=== PATIENT | male | born 1960 | race Caucasian/White ===

== ENCOUNTER → 2017-03-07 | Outpatient (CLI) | payer BC ==
[~2017-03-07] MED LIST: ANDG TOP; GLC/500 PO; GLIP-197 PO; LEVO50TA6 PO
--- NOTE | 2017-03-07 15:08 | DIAGNOSTIC IMAGING REPORT ---
RIGHT AXILLARY ULTRASOUND CLINICAL HISTORY: Right axillary lymphadenopathy. COMPARISON STUDY: Right axillary ultrasounds November 03, 2014 and June 25, 2016. FINDINGS: A few prominent suspected right axillary lymph nodes are unchanged in its earlier exams. The larger node measures 2.7 x 0.8 x 1.5 cm. No change since prior exam is noted. IMPRESSION: No significant change in a few prominent suspected right axillary lymph nodes since earlier studies. Electronically signed by: Camedn Garay M.D. 03/07/2017 3:07 PM Dictated Date/Time: 03/07/2017 3:04 PM
== END | disposition home or self-care (01) ==
LOC: C.ULTR 14:15
PROVIDERS: ATTEND Family Medicine
DX: R59.1 Generalized enlarged lymph nodes (principal)

== ENCOUNTER → 2017-03-18 | Outpatient (CLI) | payer BC ==
--- NOTE | 2017-03-18 20:14 | DIAGNOSTIC IMAGING REPORT ---
CHEST 2 VIEWS ROUTINE CLINICAL HISTORY: Cough. COMPARISON STUDY: Chest radiograph March 02, 2015. FINDINGS: Moderate elevation of the left hemidiaphragm has slightly increased since prior exam. Linear bibasilar opacities suggest atelectasis. There is no consolidation to suggest pneumonia. There is no pneumothorax or pleural effusion. Cardiac size is at upper limits of normal. IMPRESSION: 1. No acute cardiopulmonary findings. 2. Slight increase in moderate elevation of the left hemidiaphragm since prior exam. . Electronically signed by: Camden Garay M.D. 03/18/2017 8:13 PM Dictated Date/Time: 03/18/2017 8:11 PM
== END | disposition home or self-care (01) ==
LOC: C.RAD 19:18
PROVIDERS: ATTEND Family Medicine
DX: R05 Cough (principal)

== ENCOUNTER → 2017-04-17 | Outpatient (CLI) | payer BC ==
[~2017-04-17] MED LIST changes: -ANDG TOP; -GLC/500 PO; -GLIP-197 PO; -LEVO50TA6 PO; +OPTIRAY 320 IV PRN
--- NOTE | 2017-04-17 08:07 | DIAGNOSTIC IMAGING REPORT ---
CT SCAN OF THE CHEST WITH IV CONTRAST CLINICAL HISTORY: Right axillary lymphadenopathy. COMPARISON STUDY: Chest x-ray dated 03/18/2017. Ultrasound of the right axilla dated 03/07/2017. TECHNIQUE: Following the IV administration of 119 cc of Optiray 320, CT scan of the thorax was performed from the thoracic inlet to the upper abdomen. Images are reviewed in the axial, sagittal, and coronal planes. IV contrast was administered without complication. CT DOSE: 505.00 mGycm FINDINGS: Thyroid: Imaged portions of the thyroid gland are normal in size and attenuation. Thoracic aorta: The thoracic aorta is normal in caliber and demonstrates 4-vessel variant arch anatomy. An aberrant right subclavian artery arises as the fourth branch and courses posterior to the esophagus. No dissection is seen. Pulmonary vasculature: The pulmonary trunk is normal in caliber. There are no filling defects identified in the central pulmonary vessels to indicate pulmonary embolus. Note that this examination was not protocoled for evaluation of the pulmonary arteries. Heart: The heart is normal in size and configuration, and without pericardial effusion. There are coronary artery calcifications. Lungs and pleural spaces: There is chronic elevation of left hemidiaphragm with left basilar atelectasis. No airspace consolidation is seen typical for pneumonia and there is no pleural effusion. Trachea and central airways are clear. Mediastinum: There is no mediastinal lymphadenopathy. Coco: Clear. Axillae: There is no axillary lymphadenopathy. There are small right axillary lymph nodes which are almost completely fatty replaced. Upper abdomen: Partially visualized upper abdominal viscera is within normal limits. Skeletal structures: No lytic or blastic bony lesions are seen. 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 IMPRESSION: 1. There is no airspace consolidation or pleural effusion. 2. No axillary lymphadenopathy is identified. There are small right axillary lymph nodes which are almost completely fatty replaced. These are of doubtful significance. 3. Chronic elevation of left hemidiaphragm is similar to previous. 4. There is no mediastinal or hilar adenopathy. 5. An aberrant right subclavian artery is incidentally noted. Electronically signed by: Koby Canela M.D. 04/17/2017 8:06 AM Dictated Date/Time: 04/17/2017 8:01 AM
== END | disposition home or self-care (01) ==
LOC: C.CTS 07:14
PROVIDERS: ATTEND Surgery
DX: R59.1 Generalized enlarged lymph nodes (principal); Q27.8 Other specified congenital malformations of peripheral vascular system

== ENCOUNTER → 2017-08-27 | Day surgery (SDC) | payer BC ==
[~2017-08-27] VITALS: Ht 167.6 cm; Wt 67.2 kg
[~2017-08-27] MED LIST changes: +ANDG TOP; +COSYNTROPIN INJ 1 MCG in SYRINGE 0 ML IV SCH; +GLC/500 PO; +GLIP-197 PO; +LEVO50TA6 PO; -OPTIRAY 320 IV PRN
[2017-08-27 07:49] VITALS: BP 150/95; PULSE 62; TEMP 36.3; O2SAT 98; Ht 167.6 cm; Wt 67.2 kg
[2017-08-27 08:12] VITALS: BP 143/86; PULSE 57; O2SAT 98
[2017-08-27 08:48] VITALS: BP 130/76; PULSE 56; TEMP 36.6; O2SAT 98
[2017-08-27 09:18] VITALS: BP 126/86; PULSE 58; TEMP 36.5; O2SAT 97
== END | disposition home or self-care (01) ==
LOC: C.MTU 07:29
PROVIDERS: ATTEND Internal Medicine Endocrinology, Diabetes & Metabolism
DX: D35.2 Benign neoplasm of pituitary gland (principal)

== ENCOUNTER → 2017-12-12 | Outpatient (CLI) | payer OTHER ==
[~2017-12-12] MED LIST changes: -COSYNTROPIN INJ 1 MCG in SYRINGE 0 ML IV SCH
[2017-12-12 13:19] LABS: HEMATOCRIT 46.8 % (42-52); HEMOGLOBIN 15.7 g/dL (14.0-18.0)
== END | disposition home or self-care (01) ==
LOC: C.LAB1850 11:35
PROVIDERS: ATTEND Internal Medicine Endocrinology, Diabetes & Metabolism
DX: E23.0 Hypopituitarism (principal)

== ENCOUNTER → 2018-05-05 | Outpatient (CLI) | payer OTHER ==
--- NOTE | 2018-05-05 12:19 | DIAGNOSTIC IMAGING REPORT ---
VIDEO SWALLOW HISTORY: Dysphagia DYSPHAGIA TECHNIQUE: Video fluoroscopic evaluation of swallowing was performed in the AP and lateral projections by the speech pathology staff. The patient is fed nectar-thick and thin liquid barium, a barium coated wafer, and barium pudding. FLUOROSCOPY TIME: 2.6 minutes. COMPARISON STUDY: None. FINDINGS: There is normal hyoid excursion and epiglottic deflection. No significant penetration or aspiration identified. Swallowing function is remarkable for a moderate degree of dysmotility and gastroesophageal reflux. IMPRESSION: 1. No aspiration identified. Moderate dysmotility and gastroesophageal reflux. 2. Please see the speech pathologist report for detailed findings and recommendations. The above report was generated using voice recognition software. It may contain grammatical, syntax or spelling errors. Electronically signed by: Jim Card M.D. 05/05/2018 12:18 PM Dictated Date/Time: 05/05/2018 12:17 PM
--- NOTE | 2018-05-05 14:53 | SWALLOWING EVALUATION ---
HISTORY: This 58 year old man was referred for a video swallow study at [facility] in order to rule out aspiration and identify the safest consistencies for optimal oral intake. The patient is reporting some swallowing difficulty, where he feels food becoming "stuck" in his throat. The patient feels as though he needs to cough and clear his throat frequently in order to clear this. 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 He has previously taken Nexium for his reflux but felt this did not assist and caused many side effects. He is currently participating in outpatient [facility] services here at [facility] for hoarseness. 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 Current diet is regular. PROCEDURE: The patient was seen in the Radiology Department of [facility] for the VFSS. Cursory examination of the oral cavity revealed the patient to have natural upper and lower dentition in good condition. Strength and ROM of the articulators was wnl. The patient was seated upright on a stool and was viewed in the Lateral and the Anterior-Posterior (A-P) planes. Volitional phonation exercises completed in the A-P plane revealed bilateral vocal fold movement. Vocal intensity was wnl. There was no evidence of hoarseness at the onset of this study. In the lateral plane, the patient was given the following boluses: 1 tsp. thin liquid barium x 2, single swallow thin liquid barium self-presented from a cup x2, serial swallows of thin liquid barium self-presented via straw, 1 tsp. nectar-thick liquid barium, single swallow nectar-thick liquid barium self-presented from a cup, 1 tsp. barium pudding, 1/2 club cracker coated in barium pudding, and per the patient's request, 1 small piece of a protein bar coated in barium pudding (the patient reports this as giving him increased difficulty as well and request this be tested). The patient was then repositioned into the A-P plane and given the following boluses: 1 tsp. nectar thick barium, and 1 tsp. barium pudding. RESULTS: Oral Stage: Lip closure was adequate. The patient was able to maintain a cohesive liquid bolus in the oral cavity during the liquid bolus hold task. Mastication was timely and efficient. Lingual motion for bolus transport was slowed. There was retention lining the tongue and palate after the initial swallow. The initiation of the pharyngeal swallow was delayed and occurred when the bolus head reached the pyriforms. Pharyngeal Stage: Soft palate elevation was complete. Laryngeal elevation revealed complete superior movement of the thyroid cartilage with complete approximation of the arytenoids to the epiglottic base. Anterior hyoid excursion was complete. THERE WAS NO EVIDENCE OF EPIGLOTTIC DEFELCTION. Laryngeal vestibular closure was complete. The pharyngeal stripping wave was present and complete. Pharyngeal contraction was complete. There was complete distention and duration of the opening to the pharyngoesophageal segment (PES). Tongue base retraction was partially reduced with a trace column of contrast located between the tongue base and pharyngeal wall during the swallow. There was trace retention located in the valleculae after the swallow. Mild pharyngeal stage dysphagia was evidenced. The epiglottis did not invert for this study. Despite this, the patient had very good airway protection and there was NO evidence of laryngeal penetration or aspiration. Trace retention noted in the valleculae cleared with a second swallow. It should be noted that as the study progressed, the patient presented with increased throat clearing and coughing due to the patient reporting sensation of retention in the pharynx. There was only trace retention evidenced in the pharynx during these episodes. These episodes were NOT aspiration related Esophageal stage: There was retention in the mid esophagus with retrograde flow below the PES. A liquid wash did not assist to clear this. All of the above are suggestive of esophageal dysmotility and reflux. It is suspected that the patient's esophageal dysfunction is contributing to his reports of pharyngeal retention/globus sensation, increasing his sensory response to produce the cough and throat clearing noted. SUMMARY/RECOMMENDATIONS: This patient presents with mild oropharyngeal dysphagia. He presents with s/s of esophageal dysfunction. The following is recommended: 1. Regular diet, thin liquids. 2. Aspiration and GERD precautions: FULLY UPRIGHT for meals and for 30 minutes after meals; head of bed at least 30-degrees at all times. Straws OK. 3. Safe swallow strategies: Rest breaks during meals. Small frequent meals. Alternate solids and liquids as needed. 4. Consider follow up with a GI specialist for management for suspected esophageal dysfunction (medication adjustments, further testing as needed) as appropriate. 5. Follow up with outpatient speech therapy for continued voice therapy, and further education and carryover of study recommendations. May also need to consider diet modification to "slippery" (avoid foods that are dry thick, pasty and doughy, adding condiments as needed) as appropriate. A summary of the results and recommendations was discussed with the patient immediately following the study with verbal understanding. Discussed participation in a new GI consultation, as the patient has expressed that he has done this in the past and feels as it is of little benefit. Educated that reflux and esophageal dysmotility can also contribute to increase hoarseness, in addition the excess throat clearing and coughing in response to his feeling of globus sensation in relation to the suspected reflux contributes to vocally abusive behaviors. He was in agreement to re-visit a GI specialist at this time. Thank you for referral of this patient. Please contact me at if any additional information is needed.
== END | disposition home or self-care (01) ==
LOC: C.RAD 11:14
DX: R13.12 Dysphagia, oropharyngeal phase (principal); K21.9 Gastro-esophageal reflux disease without esophagitis; K22.4 Dyskinesia of esophagus